=== PATIENT | male | born 1965 | race Two or more races ===

== ENCOUNTER 2017-03-29 17:07 | Emergency (ER) | payer MEDICAID ==
[~2017-03-29] VITALS: Ht 177.8 cm; Wt 145.1 kg
[2017-03-29 17:11] VITALS: BP 156/98
[2017-03-29] MEDS ORDERED: IBUPROFEN 400 MG TABLET PO ONE (17:30)
[2017-03-29] MEDS ORDERED: IBUPROFEN 400 MG TABLET ONE (17:37)
== END 2017-03-29 18:42 | disposition home or self-care (01) ==
LOC: ER 17:09
DX: M25.562 Pain in left knee (principal); E78.00 Pure hypercholesterolemia, unspecified; Z98.890 Other specified postprocedural states
CPT/HCPCS: 73564; 99284; A4606; Z7610

== ENCOUNTER 2018-09-12 08:44 | Emergency (ER) | payer MEDICAID, OTHER ==
[~2018-09-12] VITALS: Ht 175.3 cm; Wt 142.9 kg
--- NOTE | 2018-09-12 09:07 | NUR ---
patient presented to the ER c/o of back pain. On room air, breathing evenly and unlabored. connected to the monitor and pulse ox. kept comfortable. will continue to montior accordingly.
[2018-09-12] MEDS ORDERED: CEFTRIAXONE 1GM BAG (ER ONLY) 50 ML IV ONE ×2 (09:18→09:30)
[2018-09-12] MEDS ORDERED: HYDROMORPHONE 1 MG/1 ML DISP.SYRIN ONE (09:18)
[2018-09-12 09:26] LABS: BASOPHILS # (AUTO) 0.2 /CMM (0.0-0.2); BASOPHILS % (AUTO) 1.1 % (0.0-2.0); HEMATOCRIT 43 % (39-51); HEMOGLOBIN 14.6 g/dL (13.5-17.5); LYMPHOCYTES % (AUTO) 13.3 % (20.0-44.0); MEAN CORPUSCULAR HGB CONC 34 g/dl (31.0-36.0); MEAN CORPUSCULAR VOLUME 84 fL (80-96); MONOCYTES # (AUTO) 0.8 /CMM (0.1-1.30); MONOCYTES % (AUTO) 5.4 % (2.0-12.0); NEUTROPHILS # (AUTO) 11.8 /CMM (1.8-8.9); NEUTROPHILS % (AUTO) 79.2 % (43.0-81.0); PLATELET COUNT (AUTO) 208 /CMM (150-450); RED BLOOD CELL COUNT(AUTO) 5.15 MIL/uL (4.5-6.0); WHITE BLOOD COUNT (AUTO) 14.9 K/uL (4.3-11.0)
[2018-09-12] MEDS ORDERED: IV NS 0.9% 1,000 ML BAG IV ONE (09:30)
[2018-09-12] MEDS ORDERED: HYDROMORPHONE INJ 2 MG/ML DISP.SYRIN IV ONE (09:30)
[2018-09-12 09:35] LABS: CALCIUM, SERUM 8.9 mg/dL (8.5-10.1); CREATININE 0.6 mg/dL (0.6-1.3); POTASSIUM 3.8 mmol/L (3.5-5.1)
--- NOTE | 2018-09-12 09:36 | NUR ---
MEDICATED FOR PAIN PER ERMD ORDER, PT SHAAN WELL.
[2018-09-12 10:19] VITALS: BP 137/81
--- NOTE | 2018-09-12 10:20 | NUR ---
Patient discharged to home in stable condition. Written and verbal after care instructions given. Patient verbalizes understanding of instruction. IV removed. Catheter intact and site benign. Pressure and 4x4 applied to site. No bleeding noted.
== END 2018-09-12 10:21 | disposition home or self-care (01) ==
LOC: ER 08:48
DX: K61.0 Anal abscess (principal); E78.00 Pure hypercholesterolemia, unspecified; Z98.890 Other specified postprocedural states
CPT/HCPCS: 36415; 80048; 85025; 96365; 96375; 99283; A4606; J0696; J1170; J7030

== ENCOUNTER 2019-03-26 15:45 | Emergency (ER) | payer MEDICAID, OTHER ==
[~2019-03-26] VITALS: Ht 175.3 cm; Wt 141.5 kg
[2019-03-26 15:58] VITALS: BP 158/90
[2019-03-26] MEDS ORDERED: TRAMADOL HCL 50 MG TABLET PO ONE (16:30)
[2019-03-26] MEDS ORDERED: TRAMADOL HCL 50 MG TABLET ONE (16:35)
== END 2019-03-26 17:21 | disposition home or self-care (01) ==
LOC: ER 15:48
DX: M25.561 Pain in right knee (principal); E78.00 Pure hypercholesterolemia, unspecified; Z98.890 Other specified postprocedural states
CPT/HCPCS: 73564-TC